=== PATIENT | male | born 1990 | race Caucasian/White ===

== ENCOUNTER 2021-03-05 08:28 | Inpatient (IN) ==
[2021-03-05] MEDS ORDERED: Ziprasidone 20 MG, Closed System Device IM Kit 1 EACH in Water for inj. (sterile) 1 ML IM ONE ×2 (08:57→16:31)
[2021-03-05] MEDS ORDERED: Ziprasidone 20 MG/VIAL VIAL IM ONE ×2 (09:02→16:37)
[2021-03-05] MEDS ORDERED: Water for inj. (sterile) 10 ML ONE ×2 (09:02→16:37)
[2021-03-05 09:42] LABS: Basophils % 0.2 %; Hematocrit 32.5 % (37.5-50.1); Hemoglobin 10.6 g/dL (12.9-16.9); Immature Granulocytes % 2.4 % (0-4); Lymphocytes # 2.6 K/mcL (0.6-4.6); Lymphocytes % 21.4 %; Mean Corpuscular HGB Conc 32.6 g/dL (31.6-35.5); Mean Corpuscular Hemoglobin 31.2 pg (28.0-33.3); Mean Corpuscular Volume 95.6 fL (83.0-100.0); Mean Platelet Volume 9.5 fL (9.4-12.4); Monocytes # 0.8 K/mcL (0.0-1.3); Monocytes % 6.2 %; Neutrophils # 8.6 K/mcL (1.6-8.9); Platelet Count 274 K/mcL (140-400); Red Cell Distribution Width 15.4 % (11.5-14.5); Segmented Neutrophils % 69.8 %; White Blood Count 12.3 K/mcL (4.3-11.1)
[2021-03-05 09:56] LABS: Acetaminophen < 10 mcg/mL (10-20); BUN/Creatinine Ratio 9 (6-26); Blood Urea Nitrogen 7 mg/dL (6-20); Carbon Dioxide 21 mEq/L (23-29); Chloride 113 mEq/L (98-107); Chol/HDL Ratio 2.9 (0-4.9); Cholesterol 73 mg/dL (< 200); Ethanol < 10 mg/dL (Less than 10); Glucose 102 mg/dL (70-105); HDL Cholesterol 25 mg/dL (40-59); LDL Cholesterol,Calculated 25 mg/dL (< 100); Osmolality,Calculated 288 (280-300); Potassium 3.6 mEq/L (3.5-5.1); Salicylate < 2.5 mg/dL (15.0-30.0); Sodium 140 mEq/L (136-145); Triglycerides 116 mg/dL (< 150); eGFR For African Americans > 60 (> 60); eGFR For Non-African Americans > 60 (> 60)
[2021-03-05 10:01] LABS: Bacteria,Urine Few per hpf (None-Few); Bilirubin,Urine Negative (Negative); Blood,Urine Negative (Negative); Calcium Oxalate Crystals,Urine Present per hpf; Clarity,Urine Turbid (Clear); Color,Urine Yellow (Yellow); Glucose,Urine (UA) Normal (Normal); Ketones,Urine Negative (Negative); Leukocyte Esterase,Urine Large (Negative); Mucus,Urine Few per lpf (None-Few); Nitrite,Urine Negative (Negative); Protein,Urine 30 mg/dL (Neg-Trace); Specific Gravity,Urine 1.019 (1.010-1.025); Squamous Epithelial Cell,Urine Few per hpf (None-Few); Urobilinogen,Urine Normal (Normal); WBC,Urine 15-30 per hpf (0-3)
[2021-03-05 10:08] LABS: Amphetamine Screen,Urine Negative ng/mL (Cutoff=1000); Barbiturate Screen,Urine Negative ng/mL (Cutoff=200); Benzodiazepines Screen,Urine Positive ng/mL (Cutoff=200); Cannabinoid Screen,Urine Negative ng/mL (Cutoff = 50); Cocaine Screen,Urine Negative ng/mL (Cutoff= 300); Opiate Screen,Urine Negative ng/mL (Cutoff=300); Phencyclidine Screen,Urine Negative ng/mL (Cutoff=25)
[2021-03-05 11:02] LABS: Estimated Average Glucose 103 mg/dl; Hemoglobin A1C 5.2 %
[2021-03-05] MEDS ORDERED: *HR* LORazepam 2 MG/ML VIAL IM ONE ×2 (15:59→18:27)
[2021-03-05] MEDS ORDERED: Haloperidol Lactate 5 MG/ML VIAL IM ONE (23:02)
[2021-03-06] MEDS ORDERED: Tdap (Boostrix) Vaccine 0.5 ML SYRINGE IM ONE (02:15)
[2021-03-06] MEDS: Dexmedetomidine HCl 400 MCG/100 ML MLS IVC SCH ×5 (02:43→22:30)
[2021-03-06] MEDS ORDERED: *HR* Midazolam HCl 2 MG/2 ML VIAL IVP ONE (03:51)
[2021-03-06] MEDS ORDERED: Naloxone 0.4 MG/ML INJ IVP PRN (09:37)
[2021-03-06] MEDS ORDERED: OLANZapine 10 MG VIAL IM ONE ×2 (16:00→21:41)
[2021-03-06] MEDS ORDERED: cloZAPine 25 MG TABLET PO STA (23:42)
[2021-03-06] MEDS ORDERED: Dextrose Gel 15 GM/37.5 ML TUBE PO PRN ×2 (23:43)
[2021-03-06] MEDS ORDERED: D5% in Water 1,000 ML IVC PRN (23:43)
[2021-03-06] MEDS ORDERED: *HR* Dextrose 50 % in Water (Syg) 50 ML SYRINGE IVP PRN (23:43)
[2021-03-07] MEDS: Dexmedetomidine HCl 400 MCG/100 ML MLS IVC SCH ×5 (00:06→21:32)
[2021-03-07] MEDS ORDERED: OLANZapine 10 MG VIAL IM ONE (01:11)
[2021-03-07] MEDS ORDERED: ChlorproMAZINE 25 MG/ML AMPUL IM ONE ×2 (02:31→05:32)
[2021-03-07 05:23] LABS: Basophils % 0.2 %; Hematocrit 35.4 % (37.5-50.1); Immature Granulocytes % 1.7 % (0-4); Lymphocytes # 3.1 K/mcL (0.6-4.6); Lymphocytes % 24.6 %; Mean Corpuscular HGB Conc 33.9 g/dL (31.6-35.5); Mean Corpuscular Hemoglobin 31.8 pg (28.0-33.3); Mean Corpuscular Volume 93.9 fL (83.0-100.0); Mean Platelet Volume 9.9 fL (9.4-12.4); Monocytes % 7.7 %; Neutrophils # 8.3 K/mcL (1.6-8.9); Platelet Count 296 K/mcL (140-400); Red Blood Count 3.77 M/mcL (4.19-5.50); Red Cell Distribution Width 15.4 % (11.5-14.5); Segmented Neutrophils % 65.8 %; White Blood Count 12.6 K/mcL (4.3-11.1)
[2021-03-07] MEDS: *HR* Enoxaparin 40 MG/0.4 ML SYRINGE SQ SCH (05:30)
[2021-03-07] MEDS: cloZAPine 25 MG TABLET PO SCH (08:35)
[2021-03-07] MEDS: cefTRIAXone 1,000 MG in 0.9 % Sodium Chloride Mini Bag 100 ML IVPB SCH (08:35)
[2021-03-07] MEDS ORDERED: OLANZapine 10 MG VIAL IM PRN (09:34)
[2021-03-07] MEDS: ChlorproMAZINE 25 MG/ML AMPUL IM PRN ×3 (12:23→23:43)
[2021-03-07] MEDS: clonazePAM 1 MG TABLET PO SCH ×2 (13:16→20:03)
[2021-03-07] MEDS ORDERED: Haloperidol Lactate 5 MG/ML VIAL IVP PRN (21:39)
[2021-03-08] MEDS ORDERED: Haloperidol Lactate 5 MG/ML VIAL IVP PRN (01:36)
[2021-03-08] MEDS ORDERED: Ringers Solution, Lactated 1,000 ML IVC ONE (06:06)
[2021-03-08] MEDS ORDERED: Acetaminophen IV 1,000 MG/100 ML BAG IVPB ONE (06:07)
[2021-03-08] MEDS: *HR* Enoxaparin 40 MG/0.4 ML SYRINGE SQ SCH (06:19)
[2021-03-08] MEDS ORDERED: Acetaminophen 325 MG TABLET PO PRN (07:31)
[2021-03-08 07:47] LABS: Adenovirus Not Detected (Not Detect); Bordetella Pertussis Not Detected (Not Detect); Chlamydophila pneumoniae Not Detected (Not Detect); Coronavirus 229E Not Detected (Not Detect); Coronavirus HKU1 Not Detected (Not Detect); Coronavirus NL63 Not Detected (Not Detect); Coronavirus OC43 Not Detected (Not Detect); Human Metapneumovirus Not Detected (Not Detect); Human Rhinovirus/Enterovirus Not Detected (Not Detect); Influenza A Subtype 2009 H1 Not Detected (Not Detect); Influenza B Not Detected (Not Detect); Mycoplasma pneumoniae Not Detected (Not Detect); Parainfluenza Virus 1 Not Detected (Not Detect); Parainfluenza Virus 2 Not Detected (Not Detect); Parainfluenza Virus 3 Not Detected (Not Detect); Parainfluenza Virus 4 Not Detected (Not Detect); Respiratory Syncytial Virus Not Detected (Not Detect); SARS-CoV-2 Not Detected (Not Detect)
[2021-03-08] MEDS: clonazePAM 1 MG TABLET PO SCH ×4 (08:55→22:22)
[2021-03-08] MEDS: cloZAPine 25 MG TABLET PO SCH (08:56)
[2021-03-08] MEDS: Topiramate 100 MG TABLET PO SCH ×3 (08:57→22:22)
[2021-03-08] MEDS: cloNIDine HCL 0.1 MG TABLET PO SCH ×4 (08:57→22:21)
[2021-03-08] MEDS: cefTRIAXone 1,000 MG in 0.9 % Sodium Chloride Mini Bag 100 ML IVPB SCH (08:58)
[2021-03-08 09:46] LABS: Basophils % 0.2 %; Hematocrit 39.4 % (37.5-50.1); Hemoglobin 13.3 g/dL (12.9-16.9); Immature Granulocytes % 1.9 % (0-4); Lymphocytes # 2.2 K/mcL (0.6-4.6); Lymphocytes % 13.1 %; Mean Corpuscular HGB Conc 33.8 g/dL (31.6-35.5); Mean Corpuscular Hemoglobin 31.9 pg (28.0-33.3); Mean Corpuscular Volume 94.5 fL (83.0-100.0); Mean Platelet Volume 9.7 fL (9.4-12.4); Monocytes # 1.9 K/mcL (0.0-1.3); Monocytes % 11.5 %; Neutrophils # 12.3 K/mcL (1.6-8.9); Platelet Count 365 K/mcL (140-400); Red Blood Count 4.17 M/mcL (4.19-5.50); Red Cell Distribution Width 15.7 % (11.5-14.5); Segmented Neutrophils % 73.3 %; White Blood Count 16.8 K/mcL (4.3-11.1)
[2021-03-08] MEDS: ChlorproMAZINE 25 MG/ML AMPUL IM PRN (14:25)
[2021-03-08] MEDS ORDERED: ChlorproMAZINE 25 MG/ML AMPUL IM PRN (15:53)
[2021-03-09 04:33] LABS: Hematocrit 41.7 % (37.5-50.1); Hemoglobin 13.7 g/dL (12.9-16.9); Mean Corpuscular HGB Conc 32.9 g/dL (31.6-35.5); Mean Corpuscular Hemoglobin 31.2 pg (28.0-33.3); Mean Platelet Volume 9.6 fL (9.4-12.4); Platelet Count 328 K/mcL (140-400); Red Blood Count 4.39 M/mcL (4.19-5.50); Red Cell Distribution Width 15.6 % (11.5-14.5); White Blood Count 15.4 K/mcL (4.3-11.1)
[2021-03-09 04:54] LABS: BUN/Creatinine Ratio 10 (6-26); Blood Urea Nitrogen 7 mg/dL (6-20); C-Reactive Protein 172 mg/L (Less than 10); Calcium 9.3 mg/dL (8.6-10.3); Carbon Dioxide 21 mEq/L (23-29); Chloride 105 mEq/L (98-107); Creatine Kinase 636 Units/L (30-223); Glucose 117 mg/dL (70-105); Osmolality,Calculated 275 (280-300); Potassium 3.8 mEq/L (3.5-5.1); Sodium 133 mEq/L (136-145); Troponin I < 0.03 ng/mL (< 0.04); eGFR For African Americans > 60 (> 60); eGFR For Non-African Americans > 60 (> 60)
[2021-03-09] MEDS: *HR* Enoxaparin 40 MG/0.4 ML SYRINGE SQ SCH ×2 (05:27→17:56)
[2021-03-09] MEDS: clonazePAM 1 MG TABLET PO SCH ×3 (07:39→21:05)
[2021-03-09] MEDS: cloZAPine 25 MG TABLET PO SCH (07:39)
[2021-03-09] MEDS: cloNIDine HCL 0.1 MG TABLET PO SCH ×3 (07:39→21:05)
[2021-03-09] MEDS: cephALEXin 500 MG CAPSULE PO SCH ×2 (07:39→21:05)
[2021-03-09] MEDS: Topiramate 100 MG TABLET PO SCH ×2 (07:39→21:05)
[2021-03-09] MEDS: DilTIAZem SR (12hr) 60 MG CAP.ER.12H PO SCH ×2 (13:53→21:34)
[2021-03-10] MEDS: cloZAPine 25 MG TABLET PO SCH (09:08)
[2021-03-10] MEDS: *HR* Enoxaparin 40 MG/0.4 ML SYRINGE SQ SCH (09:08)
[2021-03-10] MEDS: cloNIDine HCL 0.1 MG TABLET PO SCH ×3 (09:09→21:42)
[2021-03-10] MEDS: cephALEXin 500 MG CAPSULE PO SCH ×2 (09:09→21:42)
[2021-03-10] MEDS: clonazePAM 1 MG TABLET PO SCH ×3 (09:09→21:44)
[2021-03-10] MEDS: DilTIAZem SR (12hr) 60 MG CAP.ER.12H PO SCH ×2 (09:09→21:42)
[2021-03-10] MEDS: Topiramate 100 MG TABLET PO SCH ×2 (09:09→21:42)
[2021-03-10] MEDS ORDERED: Ibuprofen 400 MG TABLET PO PRN (12:39)
[2021-03-10] MEDS: Dexmedetomidine HCl 400 MCG/100 ML MLS IVC SCH (16:39)
[2021-03-11 06:04] LABS: Basophils % 0.3 %; Hematocrit 35.7 % (37.5-50.1); Immature Granulocytes % 1.4 % (0-4); Lymphocytes # 2.3 K/mcL (0.6-4.6); Lymphocytes % 22.4 %; Mean Corpuscular HGB Conc 32.8 g/dL (31.6-35.5); Mean Corpuscular Hemoglobin 31.2 pg (28.0-33.3); Mean Corpuscular Volume 95.2 fL (83.0-100.0); Mean Platelet Volume 10.8 fL (9.4-12.4); Monocytes # 1.1 K/mcL (0.0-1.3); Monocytes % 10.4 %; Neutrophils # 6.6 K/mcL (1.6-8.9); Platelet Count 317 K/mcL (140-400); Red Blood Count 3.75 M/mcL (4.19-5.50); Red Cell Distribution Width 15.5 % (11.5-14.5); Segmented Neutrophils % 65.5 %; White Blood Count 10.1 K/mcL (4.3-11.1)
[2021-03-11 06:07] LABS: Hemoglobin 11.7 g/dL (12.9-16.9)
[2021-03-11] MEDS: *HR* Enoxaparin 40 MG/0.4 ML SYRINGE SQ SCH (06:11)
[2021-03-11 06:28] LABS: BUN/Creatinine Ratio 16 (6-26); Blood Urea Nitrogen 13 mg/dL (6-20); Carbon Dioxide 24 mEq/L (23-29); Chloride 107 mEq/L (98-107); Glucose 100 mg/dL (70-105); Osmolality,Calculated 288 (280-300); Potassium 3.7 mEq/L (3.5-5.1); Sodium 139 mEq/L (136-145); eGFR For African Americans > 60 (> 60); eGFR For Non-African Americans > 60 (> 60)
[2021-03-11] MEDS: DilTIAZem SR (12hr) 60 MG CAP.ER.12H PO SCH ×2 (09:54→19:41)
[2021-03-11] MEDS: Topiramate 100 MG TABLET PO SCH ×2 (09:54→19:40)
[2021-03-11] MEDS: cloZAPine 25 MG TABLET PO SCH (09:55)
[2021-03-11] MEDS: cloNIDine HCL 0.1 MG TABLET PO SCH ×3 (09:55→19:39)
[2021-03-11] MEDS: cephALEXin 500 MG CAPSULE PO SCH ×2 (09:55→19:40)
[2021-03-11] MEDS: clonazePAM 1 MG TABLET PO SCH ×3 (09:58→19:40)
[2021-03-12] MEDS ORDERED: ChlorproMAZINE 25 MG/ML AMPUL IM ONE (03:52)
[2021-03-12] MEDS: *HR* Enoxaparin 40 MG/0.4 ML SYRINGE SQ SCH (04:12)
[2021-03-12 08:13] LABS: Hematocrit 34.6 % (37.5-50.1); Hemoglobin 11.2 g/dL (12.9-16.9); Mean Corpuscular HGB Conc 32.4 g/dL (31.6-35.5); Mean Corpuscular Volume 95.8 fL (83.0-100.0); Mean Platelet Volume 10.1 fL (9.4-12.4); Platelet Count 391 K/mcL (140-400); Red Blood Count 3.61 M/mcL (4.19-5.50); Red Cell Distribution Width 14.9 % (11.5-14.5); White Blood Count 10.7 K/mcL (4.3-11.1)
[2021-03-12] MEDS: cloNIDine HCL 0.1 MG TABLET PO SCH ×3 (08:44→19:46)
[2021-03-12] MEDS: clonazePAM 1 MG TABLET PO SCH ×3 (08:44→19:45)
[2021-03-12] MEDS: cloZAPine 25 MG TABLET PO SCH (08:44)
[2021-03-12] MEDS: Topiramate 100 MG TABLET PO SCH ×2 (08:44→19:46)
[2021-03-12] MEDS: cephALEXin 500 MG CAPSULE PO SCH (08:44)
[2021-03-12] MEDS: DilTIAZem SR (12hr) 60 MG CAP.ER.12H PO SCH ×2 (08:45→19:46)
[2021-03-12 10:10] LABS: Creatine Kinase 398 Units/L (30-223)
[2021-03-12] MEDS ORDERED: polyethylene glycoL 3350 17 GM POWD.PACK PO PRN (11:05)
[2021-03-12] MEDS: cefTRIAXone 2,000 MG in 0.9 % Sodium Chloride Mini Bag 100 ML IVPB SCH (12:09)
[2021-03-13] MEDS: *HR* Enoxaparin 40 MG/0.4 ML SYRINGE SQ SCH (04:58)
[2021-03-13] MEDS: cloZAPine 25 MG TABLET PO SCH (11:01)
[2021-03-13] MEDS: Topiramate 100 MG TABLET PO SCH ×2 (11:01→21:33)
[2021-03-13] MEDS: cloNIDine HCL 0.1 MG TABLET PO SCH ×3 (11:01→21:35)
[2021-03-13] MEDS: clonazePAM 1 MG TABLET PO SCH ×3 (11:01→21:33)
[2021-03-13] MEDS: DilTIAZem SR (12hr) 60 MG CAP.ER.12H PO SCH ×2 (11:02→21:33)
[2021-03-13] MEDS: cefTRIAXone 2,000 MG in 0.9 % Sodium Chloride Mini Bag 100 ML IVPB SCH (11:05)
[2021-03-14] MEDS: *HR* Enoxaparin 40 MG/0.4 ML SYRINGE SQ SCH (04:31)
[2021-03-14 06:02] LABS: Basophils % 0.2 %; Hematocrit 33.2 % (37.5-50.1); Hemoglobin 11.1 g/dL (12.9-16.9); Lymphocytes # 1.4 K/mcL (0.6-4.6); Lymphocytes % 24.7 %; Mean Corpuscular HGB Conc 33.4 g/dL (31.6-35.5); Mean Corpuscular Hemoglobin 31.9 pg (28.0-33.3); Mean Corpuscular Volume 95.4 fL (83.0-100.0); Mean Platelet Volume 9.8 fL (9.4-12.4); Monocytes % 17.7 %; Neutrophils # 3.2 K/mcL (1.6-8.9); Platelet Count 334 K/mcL (140-400); Red Blood Count 3.48 M/mcL (4.19-5.50); Segmented Neutrophils % 56.4 %; White Blood Count 5.7 K/mcL (4.3-11.1)
[2021-03-14 06:27] LABS: BUN/Creatinine Ratio 10 (6-26); Blood Urea Nitrogen 9 mg/dL (6-20); Calcium 9.2 mg/dL (8.6-10.3); Carbon Dioxide 21 mEq/L (23-29); Chloride 107 mEq/L (98-107); Glucose 97 mg/dL (70-105); Osmolality,Calculated 279 (280-300); Potassium 3.6 mEq/L (3.5-5.1); Sodium 135 mEq/L (136-145); eGFR For African Americans > 60 (> 60); eGFR For Non-African Americans > 60 (> 60)
[2021-03-14 06:32] LABS: Creatine Kinase 212 Units/L (30-223); Troponin I < 0.03 ng/mL (< 0.04)
[2021-03-14] MEDS: cloZAPine 25 MG TABLET PO SCH (08:32)
[2021-03-14] MEDS: cloNIDine HCL 0.1 MG TABLET PO SCH ×3 (08:33→21:31)
[2021-03-14] MEDS: clonazePAM 1 MG TABLET PO SCH ×3 (08:33→21:31)
[2021-03-14] MEDS: Topiramate 100 MG TABLET PO SCH ×2 (08:33→21:31)
[2021-03-14] MEDS: DilTIAZem SR (12hr) 60 MG CAP.ER.12H PO SCH ×2 (08:34→21:31)
[2021-03-14 15:29] VITALS: O2SAT 97
[2021-03-15] MEDS: *HR* Enoxaparin 40 MG/0.4 ML SYRINGE SQ SCH (04:48)
[2021-03-15] MEDS: DilTIAZem SR (12hr) 60 MG CAP.ER.12H PO SCH (07:57)
[2021-03-15] MEDS: cloZAPine 25 MG TABLET PO SCH (07:57)
[2021-03-15] MEDS: clonazePAM 1 MG TABLET PO SCH ×2 (07:57→15:08)
[2021-03-15] MEDS: Topiramate 100 MG TABLET PO SCH (07:57)
[2021-03-15] MEDS: cloNIDine HCL 0.1 MG TABLET PO SCH ×2 (07:57→15:08)
[2021-03-15 08:36] VITALS: BP 132/83; PULSE 114; TEMP 97.9
[2021-03-16] MEDS ORDERED: cloZAPine 100 MG TABLET PO SCH (09:00)
== END 2021-03-15 18:57 | disposition home or self-care (01) | DRG 884 ==
LOC: EMEROOARM 08:28 → 2NNU 08:28 → SUATTDRO 03-07 18:27 → 3BNU 03-10 16:49
PROVIDERS: ADMIT Internal Medicine; ATTEND Internal Medicine